=== PATIENT | male | born 1950 | race Caucasian/White ===

== ENCOUNTER → 2018-04-15 | Outpatient (CLI) | payer OTHER, MEDICARE | END | disposition home or self-care (01) | LOC: CFH 15:32 | PROVIDERS: ATTEND Family Medicine | DX: G45.3 Amaurosis fugax (principal); R01.1 Cardiac murmur, unspecified | CPT/HCPCS: 70551 ==

== ENCOUNTER 2018-06-03 10:52 | Inpatient (IN) | payer OTHER, MEDICARE ==
[2018-05-31 11:37] LABS: BASOPHILS # (AUTO) 0.03 x10^3/uL (0-0.1); BASOPHILS % (AUTO) 1 % (0-1); EOSINOPHILS # (AUTO) 0.23 x10^3/uL (0-0.4); EOSINOPHILS % (AUTO) 4 % (1-7); LYMPHOCYTES # (AUTO) 1.63 x10^3/uL (1-3.4); LYMPHOCYTES % (AUTO) 30 % (22-44); MD NO; MEAN CORPUSCULAR HEMOGLOBIN 30.8 pg (27.5-34.5); MEAN CORPUSCULAR HGB CONC 34.1 g/dL (33.2-36.2); MEAN CORPUSCULAR VOLUME 90.1 fL (81-97); MEAN PLATELET VOLUME 7.2 fL (7.4-10.4); MONOCYTES # (AUTO) 0.64 x10^3/uL (0.2-0.8); MONOCYTES % (AUTO) 12 % (2-9); NEUTROPHILS # (AUTO) 2.96 x10^3/uL (1.8-6.8); NEUTROPHILS % (AUTO) 54 % (42-75); PLATELET COUNT 320 x10^3/uL (130-400); RED BLOOD COUNT 4.55 x10^6/uL (4.38-5.82)
[2018-05-31 11:49] LABS: ALBUMIN 3.7 g/dL (3.4-5.0); ANION GAP 4 mmol/L (5-15); CALCIUM 8.9 mg/dL (8.5-10.1); CHLORIDE 108 mmol/L (98-107)
[2018-05-31 11:52] LABS: ALANINE AMINOTRANSFERASE 38 U/L (12-78); ALKALINE PHOSPHATASE 61 U/L (45-117); BILIRUBIN,TOTAL 0.5 mg/dL (0.2-1.0); CREATININE 0.94 mg/dL (0.7-1.3); TOTAL PROTEIN 7.2 g/dL (6.4-8.2)
[~2018-06-03] VITALS: Ht 185.4 cm; Wt 105.6 kg
[~2018-06-03 10:52] MED LIST: AMLO1CAP8 PO; BACITRACIN 50,000 UNIT ONE; BUPIVACAINE/PF-EPI 0.5% 1:200K ONE; CA C1TAB63 PO; CLOP75TA PO; HEPARIN 1,000 UNITS/ML, 30ML ONE; LIDOCAINE 1%, 20ML ONE; METH20TA5 PO; MULT1TAB60 PO; OMEG1CAP34 PO; PAPAVERINE 30 MG/ML, 2ML ONE; PROTAMINE SULFATE 10 MG/ML, 5ML ONE; ROSU40TA PO; UBID100C24 PO
[2018-06-03] MEDS ORDERED: LACTATED RINGERS 1,000 ML IV SCH (12:00)
[2018-06-03] MEDS ORDERED: PROPOFOL 50 ML ONE (12:44)
[2018-06-03] MEDS ORDERED: FENTANYL PF 250 MCG/5ML ONE (12:44)
[2018-06-03] MEDS ORDERED: REMIFENTANIL 2 MG ONE (12:48)
[2018-06-03] MEDS ORDERED: THROMBIN 5,000 UNIT VIAL TP ONE (13:02)
[2018-06-03] MEDS ORDERED: EPHEDRINE 50 MG/ML, 1ML IM PRN (14:00)
[2018-06-03] MEDS ORDERED: ONDANSETRON ODT 8 MG PO PRN (14:00)
[2018-06-03] MEDS ORDERED: FENTANYL PF 100 MCG/2ML IV PRN (14:00)
[2018-06-03] MEDS ORDERED: PROMETHAZINE 12.5 MG SUPP PR PRN (14:00)
[2018-06-03] MEDS ORDERED: MORPHINE SULFATE 4 MG/ML, 1ML IVPush PRN (14:00)
[2018-06-03] MEDS ORDERED: EPHEDRINE 50 MG/ML, 1ML IVPush PRN (14:00)
[2018-06-03] MEDS ORDERED: MIDAZOLAM 1 MG/ML, 2ML IV PRN (14:00)
[2018-06-03] MEDS ORDERED: PROMETHAZINE 25 MG SUPP PR PRN (14:00)
[2018-06-03] MEDS ORDERED: DIPHENHYDRAMINE 50 MG/ML, 1ML IVPush PRN (14:00)
[2018-06-03] MEDS ORDERED: PROMETHAZINE 25 MG/ML, 1ML IV PRN (14:00)
[2018-06-03] MEDS ORDERED: ONDANSETRON 2MG/ML, 2ML IV PRN ×2 (14:00→18:00)
[2018-06-03] MEDS ORDERED: OXYcodone 5 MG/5 ML ORAL.SOL UDC ONE (15:18)
[2018-06-03] MEDS: OXYcodone 5 MG/5 ML ORAL.SOL UDC PO PRN ×2 (15:21→15:43)
[2018-06-03] MEDS ORDERED: DEXAMETHASONE 4 MG/ML, 1ML ONE (16:10)
[2018-06-03] MEDS ORDERED: ONDANSETRON 2MG/ML, 2ML ONE (16:10)
[2018-06-03] MEDS ORDERED: SUCCINYLCHOLINE 20 MG/ML, 10ML ONE (16:10)
[2018-06-03] MEDS ORDERED: CEFAZOLIN 1,000 MG ONE (16:10)
[2018-06-03] MEDS ORDERED: ROCURONIUM 10MG/ML,5ML ONE (16:10)
[2018-06-03] MEDS ORDERED: PROPOFOL 10 MG/ML, 20ML ONE (16:10)
[2018-06-03] MEDS: LABETALOL 5MG/ML, 20ML IVPush SCH (18:00)
[2018-06-03] MEDS ORDERED: morphine SULFATE 10 MG/ML, 1ML IV PRN (18:00)
[2018-06-03] MEDS ORDERED: LABETALOL 5MG/ML, 20ML IVPush PRN (18:00)
[2018-06-03] MEDS: HYDROcodone/APAP 5/325 TABLET PO PRN ×2 (19:01→23:32)
[2018-06-03 19:36] VITALS: BP 93/58
[2018-06-03] MEDS: SODIUM CHLORIDE FLUSH 10ML SYR IVF SCH (19:53)
[2018-06-03] MEDS: POTASSIUM CHLORIDE 20 MEQ in D5%-0.45% NACL 1,000 ML IV SCH (20:39)
[2018-06-03] MEDS ORDERED: ATORVASTATIN 80 MG TABLET PO SCH (21:00)
[2018-06-04] MEDS: LABETALOL 5MG/ML, 20ML IVPush SCH ×2 (01:26→08:18)
[2018-06-04 01:28] VITALS: BP 105/63
[2018-06-04] MEDS: HYDROcodone/APAP 5/325 TABLET PO PRN (03:24)
[2018-06-04 04:34] VITALS: BP 119/68
[2018-06-04] MEDS: POTASSIUM CHLORIDE 20 MEQ in D5%-0.45% NACL 1,000 ML IV SCH (08:17)
[2018-06-04] MEDS: SODIUM CHLORIDE FLUSH 10ML SYR IVF SCH (08:17)
[2018-06-04 08:56] VITALS: BP 104/57
[2018-06-04] MEDS ORDERED: AMLODIPINE 5 MG TABLET PO SCH (09:00)
[2018-06-04 11:54] VITALS: BP 107/64
[2018-06-04] MEDS ORDERED: HYDR-3240 PO (12:26)
== END 2018-06-04 12:35 | disposition home or self-care (01) | DRG 39 ==
LOC: ORIP 10:52 → 4NOR 17:30 → DCLOUNGE 06-04 12:22
PROVIDERS: ADMIT Surgery Vascular Surgery; ATTEND Surgery Vascular Surgery
PROC: 03CM0ZZ Extirpation of Matter from Right External Carotid Artery, Open Approach (ICD-10-PCS; 2018-06-03)
PROC: 03UM0KZ Supplement Right External Carotid Artery with Nonautologous Tissue Substitute, Open Approach (ICD-10-PCS; 2018-06-03)
PROC: 03UK0KZ Supplement Right Internal Carotid Artery with Nonautologous Tissue Substitute, Open Approach (ICD-10-PCS; 2018-06-03)
PROC: 03HY32Z Insertion of Monitoring Device into Upper Artery, Percutaneous Approach (ICD-10-PCS; 2018-06-03)
PROC: 03CK0ZZ Extirpation of Matter from Right Internal Carotid Artery, Open Approach (ICD-10-PCS; principal; 2018-06-03 13:00)
DX: I65.21 Occlusion and stenosis of right carotid artery (principal); E78.5 Hyperlipidemia, unspecified; F90.9 Attention-deficit hyperactivity disorder, unspecified type; I10 Essential (primary) hypertension; Z88.0 Allergy status to penicillin; Z85.828 Personal history of other malignant neoplasm of skin
CPT/HCPCS: 36415; 80053; 85025; 86850; 86900; 93005; 95938; 95941; C1729; G0378; J0690; J1100; J1644; J2405; J2704; J2720; J3010; J3480; J3490; C1768; J0330; J2440; J7120